=== PATIENT | male | born 1965 | race Caucasian/White ===

== ENCOUNTER 2024-05-09 17:46 | Observation (INO) | payer OTHER, SELFPAY ==
[2024-05-09] VITALS (14 sets, daily range): BP systolic 146–175; BP diastolic 59–89; BMI 33.7; BMI 32.5
[2024-05-09 08:37] LABS: Glucose - Point of Care 136 mg/dl (70-99)
[2024-05-09 09:36] LABS: % Eosinophils 1.7 % (0-6); % Immature Granulocytes 0.2 % (0-0.5); % Lymphocytes 22.6 % (20.5-51.1); % Monocytes 9.9 % (1.7-9.3); % Neutrophils 64.6 % (42.2-75.2); Absolute Eosinophils 0.1 10^3/uL (0-0.7); Absolute Lymphocytes 0.9 10^3/uL (1.2-3.4); Absolute Monocytes 0.4 10^3/uL (0.1-0.6); Absolute Neutrophils 2.6 10^3/uL (1.4-6.5); Hemoglobin 12.7 g/dL (13.0-18.0); Mean Corp Hgb Conc. 35.3 g/dL (33.0-37.0); Mean Corpuscular Hgb 32.7 pg (27.0-31.0); Mean Corpuscular Volume 92.8 fL (80.0-94.0); Mean Platelet Volume 9.6 fL (7.4-10.4); Nucleated Red Blood Cells % 0 % (-); Platelet Count 222 10^3/uL (130-400); Red Blood Cell Count 3.88 10^6/uL (4.70-6.10); Red Cell Dist. Width 11.9 % (11.5-14.5)
[2024-05-09 09:45] LABS: ALT (SGPT) 162 U/L (0-50); AST (SGOT) 131 U/L (17-59); Albumin 4.7 g/dl (3.5-5.0); Alkaline Phosphatase 53 U/L (38-126); Blood Urea Nitrogen 20 mg/dl (9-20); Calcium 9.7 mg/dl (8.4-10.2); Carbon Dioxide 26 mmol/L (22-30); Chloride 105 mmol/L (98-107); Estimated Creatinine Clearance > 125 ml/min; Glucose 134 mg/dl (70-99); Potassium 4.2 mmol/L (3.5-5.1); Sodium 139 mmol/L (135-145); Total Bilirubin 0.6 mg/dl (0.2-1.3); eGFR > 60.00
[2024-05-09] MEDS: ZOFRAN 4 MG IV (09:46)
--- NOTE | 2024-05-09 09:49 | ED.GENMED ---
History of Present Illness
<Vitaly Guerra Jr., PA-C - Last Filed: 05/09/24 16:51>
General
Chief Complaint: Change in Mental Status
Source: patient
Exam Limitations: none
Time Seen by Provider: 05/09/24 08:59
Nursing documentation reviewed up to this point in time: agreed with
History of Present Illness
History of Present Illness:
59-year-old male with past medical history of hypertension hyperlipidemia, diabetes presenting to the emergency department today with multiple concerns. He claims that he initially woke up with nausea and a few episodes of vomiting felt very shaky
diffusely also felt very lightheaded like he could pass out but no room spinning dizziness. Also felt somewhat confused and had some difficulty with articulation. He otherwise felt well last night denies any additional illnesses fevers chest pain
shortness of breath had a somewhat similar episode a few years ago when he was told that he may have had a TIA.
Past History
<Vitaly Guerra Jr., PA-C - Last Filed: 05/09/24 16:51>
Past History
ED Past Medical History: HTN
ED Past Surgical History: None
Social History
Tobacco: Non-smoker
Alcohol: None
Living: with family
Review of Systems
<Vitaly Guerra Jr., PA-C - Last Filed: 05/09/24 16:51>
Review of Systems
Allergies reviewed?: Yes
All Other Systems: ROS reviewed and negative except as documented in HPI and ROS
Phy Exam
<LAYO Donis Jr. Last Filed: 05/09/24 16:51>
Physical Exam
Physical Exam:
GENERAL: Alert , in no apparent distress
EYE: pupils equal and reactive
NECK: Supple, no significant adenopathy.
ENT: o/p clr, mmm.
CARDIAC: Regular rate and rhythm .
LUNGS: Clear breath sounds bilaterally, no acute respiratory distress, no wheezes/rales/rhonchi
ABDOMEN: Soft, without focal tenderness, no r/g, no cvat
NEUROLOGICAL: Alert and oriented, patient appears to have some difficulty finding words when speak no specific dysarthria normal HEENT exam. Patient had somewhat decreased coordination with finger-nose and qljl-[id number]. Otherwise does have 5 out
of 5 strength of the upper and lower extremities. Normal sensation when palpating.
SKIN: Warm and dry, skin intact.
MUSCULOSKELETAL: No edema, well perfused.
PSYCH: Normal and appropriate interaction.
Course
<Vitaly Guerra Jr., IVETTE-Annette - Last Filed: 05/09/24 16:51>
Orders/Labs/Results
Orders:
Orders
05/09/24 09:20
Troponin I Urgent
05/09/24 09:21
CMP [Comprehensive Metabolic Panel] Urgent
Complete Blood Count/With Diff Urgent
Magnesium Urgent
Comment: ADDON
TSH Reflex To Free T4 Urgent
Comment: ADDON
05/09/24 09:28
EKG [Electrocardiogram (*1)] Urgent
Reason for Study: TIA/Stroke
CT Head W/o Iv Contrast Urgent
Comment:
Reason For Exam: ams, coordination issue
05/09/24 09:29
Add On- LAB Urgent
Tests Added?: magnesium , TSH free t4
EKG- Treatment ONCE
05/09/24 09:44
Ondansetron Injectable [Zofran] 4 mg IV NOW STA
05/09/24 09:45
Ondansetron Injectable [Zofran] 4 mg .ROUTE .STK-MED ONE
05/09/24 11:21
Lorazepam [Ativan] 0.5 mg IV NOW STA
05/09/24 14:50
Lorazepam [Ativan] 0.5 mg IV NOW STA
05/09/24 15:00
0.9% Sodium Chloride 1000 ml [Nss] 1,000 ml IV 2,000 mls/hr
05/09/24 15:40
Thiamine HCl [Vitamin B1] 100 mg PO NOW STA
Abnormal Lab Results
05/09/24 05/09/24
08:35 09:21
WBC 4.0 L 10^3/uL
(4.8-10.8)
RBC 3.88 L 10^6/uL
(4.70-6.10)
Hgb 12.7 L g/dL
(13.0-18.0)
Hct 36.0 L %
(39.0-52.0)
MCH 32.7 H pg
(27.0-31.0)
Absolute Lymphs (auto) 0.9 L 10^3/uL
(1.2-3.4)
Monocytes % 9.9 H %
(1.7-9.3)
Glucose 134 H mg/dl
(70-99)
AST 131 H U/L
(17-59)
ALT 162 H U/L
(0-50)
POC Glucose 136 H mg/dl
(70-99)
05/09/24 09:21
05/09/24 09:21
Vital Signs
Initial and Last Documented VS:
Initial Vital Signs
Temp Pulse Resp BP Pulse Ox
97.9 F 68 20 169/77 98
05/09/24 08:32 05/09/24 08:32 05/09/24 08:32 05/09/24 08:32 05/09/24 08:32
Last Documented Vital Signs
Temp Pulse Resp BP Pulse Ox
97.9 F 62 14 156/69 96
05/09/24 08:32 05/09/24 16:30 05/09/24 16:30 05/09/24 16:00 05/09/24 16:30
<Bhupinder Pitts MD - Last Filed: 05/09/24 10:53>
Orders/Labs/Results
Orders:
Orders
05/09/24 09:20
Troponin I Urgent
05/09/24 09:21
CMP [Comprehensive Metabolic Panel] Urgent
Complete Blood Count/With Diff Urgent
Magnesium Urgent
Comment: ADDON
TSH Reflex To Free T4 Urgent
Comment: ADDON
05/09/24 09:28
EKG [Electrocardiogram (*1)] Urgent
Reason for Study: TIA/Stroke
CT Head W/o Iv Contrast Urgent
Comment:
Reason For Exam: ams, coordination issue
05/09/24 09:29
Add On- LAB Urgent
Tests Added?: magnesium , TSH free t4
EKG- Treatment ONCE
05/09/24 09:44
Ondansetron Injectable [Zofran] 4 mg IV NOW STA
05/09/24 09:45
Ondansetron Injectable [Zofran] 4 mg .ROUTE .STK-MED ONE
05/09/24 11:21
Lorazepam [Ativan] 0.5 mg IV NOW STA
05/09/24 14:50
Lorazepam [Ativan] 0.5 mg IV NOW STA
05/09/24 15:00
0.9% Sodium Chloride 1000 ml [Nss] 1,000 ml IV 2,000 mls/hr
05/09/24 15:40
Thiamine HCl [Vitamin B1] 100 mg PO NOW STA
Abnormal Lab Results
05/09/24 05/09/24
08:35 09:21
WBC 4.0 L 10^3/uL
(4.8-10.8)
RBC 3.88 L 10^6/uL
(4.70-6.10)
Hgb 12.7 L g/dL
(13.0-18.0)
Hct 36.0 L %
(39.0-52.0)
MCH 32.7 H pg
(27.0-31.0)
Absolute Lymphs (auto) 0.9 L 10^3/uL
(1.2-3.4)
Monocytes % 9.9 H %
(1.7-9.3)
Glucose 134 H mg/dl
(70-99)
AST 131 H U/L
(17-59)
ALT 162 H U/L
(0-50)
POC Glucose 136 H mg/dl
(70-99)
05/09/24 09:21
05/09/24 09:21
Vital Signs
Initial and Last Documented VS:
Initial Vital Signs
Temp Pulse Resp BP Pulse Ox
97.9 F 68 20 169/77 98
05/09/24 08:32 05/09/24 08:32 05/09/24 08:32 05/09/24 08:32 05/09/24 08:32
Last Documented Vital Signs
Temp Pulse Resp BP Pulse Ox
97.9 F 62 14 156/69 96
05/09/24 08:32 05/09/24 16:30 05/09/24 16:30 05/09/24 16:00 05/09/24 16:30
<Vitaly Guerra Jr., PA-C - Last Filed: 05/09/24 16:51>
MDM/Problems Addressed
MDM/Problems Addressed:
58-year-old male presenting to the emergency department today with concerns of lightheadedness nausea and vomiting shakiness and confusion starting this morning. Upon arrival blood pressure mildly elevated otherwise vital signs are normal. Patient
on neurologic examination had some difficulty with coordination of his upper and lower extremities but otherwise did have normal strength normal HEENT exam. No specific discomfort at this time. Did have some difficulties finding words here labs
unremarkable CT scan without emergent findings. Case discussed with neuro who saw him at bedside and does not feel this is representing an acute emergent neurologic event. Patient was given fluids and additional dose of Ativan seem to help with
symptoms but still having significant ataxic gait significant tremor concerning his significant ongoing symptoms plan to admit for observation overnight.
<Vitaly Guerra Jr., PA-C - Last Filed: 05/09/24 16:51>
*Critical Care Note
Total Time (30-74mins, 75-104mins- exclusive of procedures): Not Applicable
ED Attending Note
<Vitaly Guerra Jr., PA-C - Last Filed: 05/09/24 16:51>
-
Portions of this chart may have been created with voice recognition software.� Occasional wrong word or��sound alike� substitutions may have occurred due to the inherent limitations of voice recognition software.
<Bhupinder Pitts MD - Last Filed: 05/09/24 10:53>
ED Attending Note
Patient seen and examined by attending physician: Yes
ED Attending Note:
I have seen and evaluated the patient with a [id number] encounter. I have spoken to the advance practicer provider and involved in the medical history, the physical exam, medical decision making.
Evaluation and management service: agree unless noted differently below.
Results interpretation: agree unless noted differently below.
Focused HPI: 58-year-old male with past medical history as documented presents to the emergency department for evaluation of dizziness, tremulousness and speech issues. Patient reports onset of symptoms around 7:30 AM when he woke up. They have
been constant since that time although shakiness/tremulous seems to be waxing and waning. He reports difficulty with word finding; he says he has had a few episodes where he feels as if he might pass out. He says he has been nauseated and vomited
x 2. He has whole body tremulousness. Denies any headache, chest pain, abdominal pain. He denies any change in his vision. Although he has some difficulty with word finding he denies any slurring of his speech. He denies any focal weakness or
numbness in his extremities. He denies having had similar symptoms in the past.
Physical exam: Awake alert, nontoxic. Hypertensive but otherwise normal vitals. Head normocephalic atraumatic. Pupils are equal round reactive to light bilaterally, extraocular movements are intact. Cranial nerves intact 2 through 12. Speech is
fluid with no dysarthria, occasionally has some hesitancy with word finding but no marked aphasia. He has tremulousness with intention but no resting tremor; he has no limb ataxia. Motor and sensory function is intact and symmetric upper and lower
extremities both proximally and distally. He has no cardiac rubs gallops or murmurs on a regular rhythm on auscultation.
Medical Decision Makin-year-old male presents with multiple complaints as above primarily complaining of tremulousness and speech issues also having some lightheadedness and nausea. Vitals and exam as above. Check labs including a CBC and a
CMP. Will check EKG. Check troponin. Check CT head. Discussed with neurology For assessment. Reassess after the above.
Discharge Plan
Departure
Patient Disposition: Admit
Date of Disposition: 05/09/24
Time of Disposition: 16:51
Admit to: Telemetry
Admit to doctor: Jennyfer
Presentation/result/management discussed w/ accepting MD/DO: Hospitalist
Patient with high blood pressure during this ER visit?: No
Condition: Good
Covid-19: Not Applicable
Discharge Problem:
Ataxia, Tremor
Prescriptions:
No Action
lansoprazole [Prevacid] 30 MG capsule,delayed release(DR/EC)
30 mg PO DAILY
sertraline [Zoloft] 100 MG tablet
100 mg PO DAILY
amlodipine 5 MG tablet
5 mg PO DAILY
rosuvastatin 20 MG tablet
20 mg PO DAILY
losartan-hydrochlorothiazide 100-25 mg Tablet
1 tab PO DAILY
doxazosin 1 mg Tablet
1 mg PO DAILY
Medical Marijuana
1 puff inhalation HS
Emgality Pen 120 mg/mL Pen Injector
120 mg SC QMONTH
Fish Oil Capsule
3,000 mg PO DAILY
cholestyramine (with sugar) 4 gram powder in packet
1 ea PO DAILY
Rezdiffra 100 mg Tablet
100 mg PO DAILY
Referrals:
Kaz Ochoa Jr., DO [Family Provider] -
Interventions
Interventions:
*Risk Screen - Suicide Last Done: 05/09/24 08:32
*General Assessment Last Done: 05/09/24 08:32
*Neglect/Abuse Screening Last Done: 05/09/24 08:32
ED- Fall Risk Assessment Last Done: 05/09/24 09:14
KK-Nqkrpa-Inqlvddlfs Assessment Last Done: 05/09/24 09:14
ED- Cardiac Assessment Last Done: 05/09/24 09:14
ED- Neurological Assessment Last Done: 05/09/24 09:23
ED Swallowing Screen Last Done: 05/09/24 14:58
Discharge Date and Time
Print Language: GREEK
[2024-05-09 10:59] LABS: Magnesium 1.7 mg/dl (1.6-2.3)
[2024-05-09] MEDS: ATIVAN 0.5 MG IV ×2 (11:28→15:11)
[2024-05-09 11:31] LABS: TSH Reflex To Free T4 2.47 uIU/ml (0.47-4.68)
--- NOTE | 2024-05-09 12:13 | CON.NEURO4 ---
Addendum entered and electronically signed by Azar Rivera MD 05/09/24 15:02:
I saw and evaluate the patient I reviewed the note by Rizwana Snow agree with the findings the following comments:
58-year-old man with past medical history of migraines, transient global amnesia, ADHD and hypertension presenting the hospital after he had woken up this morning with a 'feeling of doom' and then feeling of nausea and then vomiting. He is also had
some word finding difficulties along with tremulousness when he walks.
Patient denies any headache or photophobia no sick contacts or recent changes in medications. He had Bengali food last night does not note any really big change in bowel movements recently denies any abdominal pain he does feel a bit like he still
has some nausea and feeling of chills at this time.
No unilateral paresthesia of the face or limbs no unilateral weakness no dysphagia or double vision or vision changes.
Neurologic examination shows good fluent speech able to repeat complex phrases and his spontaneous speech has occasionally some pauses, obeys complex commands and can set up logical lesions very fluently.
Cranial nerves II through XII normal
Motor examination normal while resting in bed he does develop some generalized tremulousness when walking, power 5/5 normal bulk and tone
Reflexes diminished and symmetric throughout
Gait examination shows independent ability to walk with some tremulousness while walking but no ataxia or wide-based
Normal [id number] testing bilateral
CT head noncontrast unremarkable
Assessment: Most likely having some dizziness, tremulousness and word finding difficulty secondary to dehydration, electrolyte disturbance, from nausea and vomiting ultimately. Not characteristic of migraine. Does not seem to be convincing for a
cyclic vomiting syndrome he does use marijuana most nights of the week for restless leg syndrome.
Recommendations
-Mostly reassurance
-Treat symptomatically for GI symptoms
-Monitor for migraine headache
-Not feeling he needs further neurologic imaging
Original Note:
Consultation - Neurology 4
-
CONSULTING PHYSICIAN: Hailey Rivera MD
REFERRING PHYSICIAN: ER/Ed LAYO Guerra
DICTATED BY: GABRIEL Mayorga
DATE/TIME OF REQUEST: 05/09/24
DATE/TIME OF CONSULTATION: 05/09/24
Reason for Consultation: Word finding difficulty
History of Present Illness:
This is a 58-year-old right-handed male who has presented to the hospital with report of nausea, vomiting, dizziness, and word finding difficulty. Patient is followed by our Neurology service as an outpatient for an episode of TGA in 2019,
migraines, and restless legs syndrome.
From previous outpatient evaluation by Neurology GABRIEL Boswell on 11/23/23:
'56-year-old male presents for evaluation for an episode of possible transient global amnesia. Of note he has a history of migraine headaches for which she previously followed with [place] [facility]. He was admitted at [facility] in
July 2020 after developing an episode of confusion. He was 'sitting at the dinner table, then had a blank look on his face, his right eye drooped per his , told his that he did not feel well and was slow to answer questions.' She told
him that he needed to go to the hospital and he argued with her that he did not want to. He maintained consciousness throughout the event but does not remember the details of it. He was not lethargic during the event. He had no clear convulsive
seizure activity associated with it. 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 He had been taking Horizant prescribed by [place] [facility] but had been on this for some time
prior to this event. He denied any physical exertion prior to this event or any medical procedures. His BP in the ED was 146/80. He felt back to normal by the next day. He had no clear focal neurological deficits associated with this event. He had
mild head pressure. He was not aphasic. He did not have dysarthria. Regarding seizure risk factors, he has no personal history of seizure. He has no history of head trauma. No family history of seizure. No history of [employer] infection, febrile seizure
or developmental delay. He was born full-term without any complications.
�������He had an MRI brain done without contrast, and MRA of the neck w/without contrast and MRA [place] of [place] without contrast done at [facility] while he was hospitalized on July 29, 2020. These studies were unremarkable. No focal
stenosis, aneurysm or occlusion was noted. He was discharged with a diagnosis of TGA. He has had no further similar episdoes.
�������The patient also states that he has noticed short-term memory loss. He states that he 'cannot remember something when he needs to but then it comes back to him.' He is also developed tremors at night in his BUE but no associated loss of
consciousness.
�������He has a history of headaches that he has had for the past year and a half. There are right temporal in location, constant, achy and can last all day. There also at times centered around his right eye. No associated conjunctival injection or
tearing. He has no associated aura. No photophobia, phonophobia, nausea or vomiting. They can be severe and interfere with his life. He takes ibuprofen for abortive therapy. He was put on Emgality by his previous neurologist and took this for 6
months. This worked very well and he was headache free on this medication but he had to stop taking it as it was not covered by his insurance.'
Patient reports feeling at his baseline last night when he went to bed. At 0615 he woke up and reports having an 'impending doom' sensation. He immediately felt nausea and vomited after drinking some water. He walked to the bathroom and reports
getting dizzy which he describes as off-balance/lightheaded. He felt shaky and thought he might pass out. He also notes his gait feels unsteady and he is having some word finding difficulty which has persisted. He denies any headache, vision
changes, swallowing difficulty, hearing changes, ear fullness, numbness, weakness, chest pain, palpitations, and shortness of breath. CT head was obtained on arrival and is negative for any acute abnormalities.
He denies any recent sick exposure or fevers. His migraines have been well controlled on Emgality, he has less than 5 headache days a month not associated with photo/phonophobia, nausea/vomiting, or vision changes. He started taking Rezdiffra for
liver fibrosis two months ago and has been tolerating this. He takes medical marijuana for RLS most nights of the week, he did not use any last night. His RLE is most prominent in his RLE but his notes he has entire body tremors in his sleep.
He never has tongue biting or incontinence with his tremors. He has had chronic diarrhea since cholecystectomy about one year ago, improved with cholestryamine. He does not feeling more fatigued for the past 2 weeks.
Past Medical History: Migraines, ADHD, TMJ, TGA, HTN
Surgical History: Cholecystectomy, right knee meniscus repair, triple hernia repair, kidney stone removal.
Family History: Reviewed and noncontributory.
Social History: Occasional alcohol. Denies tobacco. Medical marijuana at HS most days of the week for restless legs. Lives with his spouse, mother in law, and cat Sincere.
Allergies: Annatto, cilantro.
Home Medications: See below.
Review of Symptoms:
Patient denies any fever, headache, chest pain, shortness of breath, or symptoms.
�Per the HPI.�All systems are reviewed negative except above.
Physical Exam:
The patient is afebrile, abdomen is nondistended, breathing is unlabored, skin is cool and dry, no edema.
Neurologic Examination:
The patient is awake, alert and oriented x 3. He is able to follow commands and answer questions appropriately. There is no aphasia or dysarthria. On cranial nerve assessment, pupils are 3 mm bilateral, round and reactive to light and
accommodation. Visual hernandes are full. Extraocular movements are intact. Facial sensations are intact and bilaterally symmetrical, there is no facial asymmetry. Hearing is intact bilaterally to normal conversation volume. Tongue palate and uvula are
midline. Sternocleidomastoid strengths are full bilaterally. Motor strengths are 5/5 bilateral upper and lower extremities on medical research [place] scale. There is no drift. There is a low amplitude distal upper and lower extremity tremor with
exertion. Deep tendon reflexes are 1+ bilateral upper and lower extremities and Babinski is absent bilaterally. Sensation of temperature is mildly reduced in distal bilateral lower extremities. There was no extinction noted on double simultaneous
stimulation. Coordination is intact by finger to nose bilaterally. Gait is staggered, low amplitude body shaking.
Lab Results: See below.
Neuro Imaging:
1. CT Head 05/09/24: No acute intracranial abnormality.
Differentials for the patient's presentation include:
1. Metabolic disturbance likely producing patient's symptoms.
2. Low concern for [employer] issue, marijuana reaction, or migraine to be producing patient's symptoms.
Patient has the following risk factors for their symptoms: vomiting, chills
Recommendations:
-Metabolic workup per primary team. Consider IVF/vitamin replacement.
-Do not see a role for further neurological imaging at this point.
Discussed patient care with: Dr. Rivera, the patient
Vital Signs and Labs
-
Vital Signs and Labs:
Vital Signs
Temp Pulse Resp BP Pulse Ox
97.9 F 81 15 156/61 97
05/09/24 08:32 05/09/24 12:45 05/09/24 12:45 05/09/24 12:00 05/09/24 12:45
Lab Results
05/09/24 09:21
05/09/24 09:21
Sodium 139 mmol/L (135-145) 05/09/24 09:21
Potassium 4.2 mmol/L (3.5-5.1) 05/09/24 09:21
BUN 20 mg/dl (9-20) 05/09/24 09:21
Glucose 134 mg/dl (70-99) H 05/09/24 09:21
Calcium 9.7 mg/dl (8.4-10.2) 05/09/24 09:21
Medications
-
Home Medications
�Medication �Instructions �Recorded
lansoprazole 30 mg capsule,delayed 30 mg PO DAILY Gastrointestinal 10/27/16
release (Prevacid) issue
amlodipine 5 mg tablet 5 mg PO DAILY Heart 07/28/20
disease/condition
rosuvastatin 20 mg tablet 20 mg PO DAILY High cholesterol 07/28/20
sertraline 100 mg tablet (Zoloft) 100 mg PO DAILY Depression 07/28/20
Medical Marijuana 1 puff inhalation HS RESTLESS LEGS 02/18/23
doxazosin 1 mg tablet 1 mg PO DAILY 02/18/23
galcanezumab-gnlm 120 mg/mL 120 mg SC QMONTH MIGRAINES 02/18/23
subcutaneous pen injector
(Emgality Pen)
losartan 100 1 tab PO DAILY 02/18/23
mg-hydrochlorothiazide 25 mg tablet
cholestyramine (with sugar) 4 gram 1 ea PO DAILY 05/09/24
powder for susp in a packet
omega-3 fatty acids 3,000 mg PO DAILY 05/09/24
resmetirom 100 mg tablet 100 mg PO DAILY 05/09/24
(Alvaro)
[2024-05-09 12:50] LABS: Troponin I < 0.012 ng/ml
[2024-05-09] MEDS: NSS 1000 IV ×2 (15:10→16:49)
[2024-05-09] MEDS: VITAMIN B1 100 MG PO (16:48)
--- NOTE | 2024-05-09 17:12 | HPS.HSE ---
Family Physician
-
Family Physician: Kaz Ochoa Jr.
Chief Complaint
-
vomiting
History of Present Illness
58-year-old male past medical history of migraines, CAMARGO, hypertension, hyperlipidemia, prediabetes, depression, GERD, DVT, kidney stones, presenting to the emergency room for multiple symptoms. He states that he initially woke up with nausea and
4 episodes of vomiting and he felt very shaky and lightheaded when he was walking like he was going to pass out denies any vertigo or spinning. He also felt confused at some difficulty with articulation. He denies any diarrhea. He denies
abdominal pain. He denies any recent travel, eating any restaurant food, green party food or any sick contacts.
He denies any headache, blurry vision, focal weakness, numbness or tingling. He denies urinary symptoms, chest pain or shortness of breath or cough.
He was recently started on Rezdiffa 2 months ago and started cholestyramine 3 days ago for chronic postcholecystectomy diarrhea.
Uses medical marijuana. He does not smoke or drink alcohol or use any other drugs.
Medical History
Past Medical History
Past Medical History: Reports Other (migraines, CAMARGO, hypertension, hyperlipidemia, prediabetes, depression, GERD, DVT, kidney stones)
Past Surgical History: Reports Other (Triple hernia repair, diastases recti surgery, cholecystectomy, meniscus surgery,)
Social History
Tobacco: Non-smoker
Alcohol: None
Drug: Marijuana
Family History
Family History: Not pertinent
Allergies / Home Medications
Allergies reflects when Allergies were last updated in [facility].
Home Medications with original date entered in [facility]
Allergy/Medication List:
Allergies
Allergy/AdvReac Type Severity Reaction Status Date / Time
annatto Allergy Unknown Verified 05/09/24 08:37
Toro food Allergy Anaphylaxis Uncoded 05/09/24 08:37
Home Medications
lansoprazole 30 mg capsule,delayed release (Prevacid) 30 mg PO DAILY Gastrointestinal issue 10/27/16
amlodipine 5 mg tablet 5 mg PO DAILY Heart disease/condition 07/28/20
rosuvastatin 20 mg tablet 20 mg PO DAILY High cholesterol 07/28/20
sertraline 100 mg tablet (Zoloft) 100 mg PO DAILY Depression 07/28/20
Medical Marijuana 1 puff inhalation HS RESTLESS LEGS 02/18/23
doxazosin 1 mg tablet 1 mg PO DAILY 02/18/23
galcanezumab-gnlm 120 mg/mL subcutaneous pen injector (Emgality Pen) 120 mg SC QMONTH MIGRAINES 02/18/23
losartan 100 mg-hydrochlorothiazide 25 mg tablet 1 tab PO DAILY 02/18/23
cholestyramine (with sugar) 4 gram powder for susp in a packet 1 ea PO DAILY 05/09/24
omega-3 fatty acids 3,000 mg PO DAILY 05/09/24
resmetirom 100 mg tablet (Rezdiffra) 100 mg PO DAILY 05/09/24
Review of Systems
-
History Source: Patient
A 12 point ROS was completed and negative except as noted: Yes
Constitutional: Reports No Symptoms
EENT: Reports No Symptoms
Respiratory: Reports No Symptoms
Cardiac: Reports No Symptoms
Abdomen/GI: Reports See HPI
: Reports No Symptoms
Musculoskeletal: Reports No Symptoms
Skin: Reports No Symptoms
Neurological: Reports No Symptoms
Endocrine: Reports No Symptoms
Hematologic/Lymphatic: Reports No Symptoms
Psych: Reports No Symptoms
Physical Exam
Vital Signs
Vital Signs
Temp Pulse Resp BP Pulse Ox
97.9 F 62 14 156/69 96
05/09/24 08:32 05/09/24 16:30 05/09/24 16:30 05/09/24 16:00 05/09/24 16:30
Physical Exam
General: Well Developed, Well Nourished and No Apparent Distress
HEENT: NormoCephalic, Moist mucous membranes and Atraumatic
Respiratory: Clear
Cardiac: S1/S2 and Regular Rhythm; No Murmur or Rub
GI: Soft, Non Tender, Non Distended and Normal Bowel Sounds; No Organomegaly
Rectal: Deferred by Provider
Musculoskeletal: No Clubbing, No Cyanosis and No Edema
Skin: No Rash
Neuro: Nonfocal/grossly intact
Laboratory Results
-
05/09/24 09:21
05/09/24 09:21
Laboratory Results
Total Bilirubin 0.6 mg/dl (0.2-1.3) 05/09/24 09:21
AST 131 U/L (17-59) H 05/09/24 09:21
ALT 162 U/L (0-50) H 05/09/24 09:21
Alkaline Phosphatase 53 U/L (38-126) 05/09/24 09:21
Troponin I < 0.012 ng/ml 05/09/24 09:20
Data Reviewed
-
Lab Data: Labs Reviewed by me
Old Records: Reviewed
Impression/Plan
-
IMPRESSION:
PLAN:
# Vomiting, chills, generalized weakness, dizziness, disequilibrium likely secondary to recent addition of cholestyramine
-Hold cholestyramine until resolution of symptoms
-IV fluids given
-Zofran
-Symptoms improving
-Observation overnight
-Regular diet as tolerated
-Seen by neurology without concern for underlying neurological issue
Chronic transaminitis secondary to CAMARGO
-continue rezzdiffra
Postcholecystectomy diarrhea
-Started cholestyramine 3 days ago without diarrhea at this time, hold for now
Essential hypertension
-Continue amlodipine, losartan/hydrochlorothiazide, doxazosin
History of migraines
-On Emgality
Hyperlipidemia
-Continue statin
Prediabetes
History of DVT
Depression
-Continue sertraline
GERD
-Continue lansoprazole
History of kidney stones
Medical marijuana use
Full code
DVT prophylaxis�heparin
Regular diet
--- NOTE | 2024-05-09 19:21 | PTCARENOTE ---
Received this pt from the ED, pt ambulated to the bed with standby assistance and no assistive devices, VSS, resting comfortably in bed with significant other at bedside.
[2024-05-09] MEDS: HEPARIN 5000 UNITS SC (21:01)
[2024-05-10 03:37] VITALS: BP 148/74
[2024-05-10 06:54] LABS: ALT (SGPT) 145 U/L (0-50); AST (SGOT) 120 U/L (17-59); Albumin 4.6 g/dl (3.5-5.0); Alkaline Phosphatase 54 U/L (38-126); Blood Urea Nitrogen 14 mg/dl (9-20); Calcium 9.6 mg/dl (8.4-10.2); Carbon Dioxide 26 mmol/L (22-30); Chloride 101 mmol/L (98-107); Estimated Creatinine Clearance > 125 ml/min; Glucose 110 mg/dl (70-99); Potassium 3.9 mmol/L (3.5-5.1); Sodium 136 mmol/L (135-145); Total Bilirubin 1.6 mg/dl (0.2-1.3); Total Protein 6.9 g/dl (6.3-8.2); eGFR > 60.00
[2024-05-10 06:55] LABS: % Basophils 0.8 % (0-2); % Eosinophils 2.6 % (0-6); % Immature Granulocytes 0.3 % (0-0.5); % Lymphocytes 23.1 % (20.5-51.1); % Monocytes 10.4 % (1.7-9.3); % Neutrophils 62.8 % (42.2-75.2); Absolute Basophils 0.1 10^3/uL (0-0.2); Absolute Eosinophils 0.2 10^3/uL (0-0.7); Absolute Lymphocytes 1.4 10^3/uL (1.2-3.4); Absolute Monocytes 0.6 10^3/uL (0.1-0.6); Absolute Neutrophils 3.9 10^3/uL (1.4-6.5); Hemoglobin 12.7 g/dL (13.0-18.0); Mean Corp Hgb Conc. 34.3 g/dL (33.0-37.0); Mean Corpuscular Hgb 32.4 pg (27.0-31.0); Mean Corpuscular Volume 94.4 fL (80.0-94.0); Mean Platelet Volume 10.3 fL (7.4-10.4); Nucleated Red Blood Cells % 0 % (-); Platelet Count 240 10^3/uL (130-400); Red Blood Cell Count 3.92 10^6/uL (4.70-6.10); Red Cell Dist. Width 11.8 % (11.5-14.5); White Blood Cell Count 6.1 10^3/uL (4.8-10.8)
[2024-05-10 07:40] VITALS: BP 139/72
[2024-05-10] MEDS: NORVASC 5 MG PO (08:59)
[2024-05-10] MEDS: CRESTOR 20 MG PO (08:59)
[2024-05-10] MEDS: HYZAAR 100-25 TABLET 1 TAB PO (08:59)
[2024-05-10] MEDS: PROTONIX 40 MG PO (08:59)
[2024-05-10] MEDS: ZOLOFT 100 MG PO (08:59)
[2024-05-10] MEDS: HEPARIN 5000 UNITS SC (09:00)
[2024-05-10] MEDS: CARDURA 1 MG PO (09:00)
[2024-05-10 11:20] VITALS: BP 151/78
--- NOTE | 2024-05-10 12:15 | CM ---
Reviewed the chart notes and spoke with the patient at the bedside. The patient is admitted under observational status. The observation letter was provided and explained. The patient had no questions with regards to the letter.
The patient resides with his spouse and [id number] in a multi-level home, there are 10 steps to enter. The patient reports no DME/VN/SNF in the past. The patient confirmed his pharmacy of choice is [facility]. The patient will be discharged today
to home with no needs. His spouse will provide transportation. CM continues to be available to patient/family and is monitoring medical plan for needs at discharge.
Plan: Discharge to home no needs identified.
--- NOTE | 2024-05-10 13:09 | W.PN.HOSP.TC ---
Today's Communication/Plan
-
dc to home
Assessment / Plan
Assessment / Plan
Assessment:
Vomiting, chills, generalized weakness, dizziness, disequilibrium likely secondary to recent addition of cholestyramine and ongoing use of Rezdiffra
- extensive discussion with patient, will ask to stop Rezdiffra and for now keep cholestyramine with caveat that if his symptoms occur again to dc cholestyramine as well
- regular diet
- OP f/u with GI and hepatology
- appreciate Neuro eval, no concern for neurological etiology
Chronic transaminitis secondary to CAMARGO
- as above, stop Rezdiffra and Hepatology f/u
Postcholecystectomy diarrhea
-Started cholestyramine 3 days ago without diarrhea at this time, hold for now
Essential hypertension
- Continue amlodipine, losartan/hydrochlorothiazide, doxazosin
History of migraines
- On Emgality
Hyperlipidemia
- Continue statin
Prediabetes
History of DVT
Depression
- Continue sertraline
GERD
- continue lansoprazole
History of kidney stones
Medical marijuana use
DVT ppx: SC heparin
Code: Full
More than 30 minutes spent in discharge including
Final examination of the patient
Summarizing hospital stay
Instructions for continuing care to all relevant caregivers
Preparation of discharge records, prescriptions, and referral forms
Total time spent (in minutes): 41
Anticipated Discharge: Within 24 hours
Subjective/Interval History
-
Date of Service: May 10, 2024
symptomatically improving, able to tolerated diet now
Objective Data
-
Labs:
Laboratory Results
05/10/24
04:50
WBC 6.1
Hgb 12.7 L
Hct 37.0 L
Plt Count 240
Sodium 136
Potassium 3.9
Chloride 101
Carbon Dioxide 26
BUN 14
Creatinine 0.8
Glucose 110 H
Calcium 9.6
Total Bilirubin 1.6 H D
AST 120 H
ALT 145 H
Alkaline Phosphatase 54
Vital Signs:
Vital Signs
Temp Pulse Resp BP Pulse Ox
98.4 F 66 16 151/78 97
05/10/24 11:20 05/10/24 11:20 05/10/24 11:20 05/10/24 11:20 05/10/24 12:06
I&O
05/09/24 05/10/24 05/11/24
06:59 06:59 06:59
Intake Total 1000 / 1000
Balance 1000 / 1000
Physical Exam
-
General: No Apparent Distress
HEENT: Normocephalic and Atraumatic
Respiratory: Negative Wheezes
Cardiac: Regular Rhythm and S1/S2
GI: Soft and Nontender
Neuro: AO x 3
Psych: Calm
Data Reviewed
-
Total Time Spent with Patient (in minutes): 42
Labs: Labs Reviewed by me
--- NOTE | 2024-05-10 13:20 | W.DS.TRANS ---
DC Summary - Product Advisor
-
Discharge Instructions:
Discharge Diagnosis/Procedures tremor, disequilibrium from Rezdiffra +/-
Cholestyramine
Diet Regular
Activity As tolerated
Bathing Restrictions None
Instructions:
Stand-Alone Forms:
Changes to Home Medications: Yes
Discharge Medications:
DC Medications w/original date entered in [facility]
lansoprazole 30 mg capsule,delayed release (Prevacid) 30 mg PO DAILY Gastrointestinal issue 10/27/16
amlodipine 5 mg tablet 5 mg PO DAILY Heart disease/condition 07/28/20
rosuvastatin 20 mg tablet 20 mg PO DAILY High cholesterol 07/28/20
sertraline 100 mg tablet (Zoloft) 100 mg PO DAILY Depression 07/28/20
Medical Marijuana 1 puff inhalation HS RESTLESS LEGS 02/18/23
doxazosin 1 mg tablet 1 mg PO DAILY 02/18/23
galcanezumab-gnlm 120 mg/mL subcutaneous pen injector (Emgality Pen) 120 mg SC QMONTH MIGRAINES 02/18/23
losartan 100 mg-hydrochlorothiazide 25 mg tablet 1 tab PO DAILY Blood Pressure 02/18/23
cholestyramine (with sugar) 4 gram powder for susp in a packet 1 ea PO DAILY 05/09/24
omega-3 fatty acids 3,000 mg PO DAILY 05/09/24
Home Medication Changes
Rezdiffra stopped
Pending Results: No
Total time spent discharging patient (in min): 42
--- NOTE | 2024-05-10 14:13 | PTCARENOTE ---
Patient discharged home with no needs. This RN removed patient's IV and telemetry pack and reviewed discharge instructions and medications with patient; patient verbalized understanding. Patient dressed and gathered belongings in room independently,
taken down to family member's car at main lobby via staff escort and wheelchair.
== END 2024-05-10 14:25 | disposition home or self-care (01) ==
LOC: 2 NORTH 17:46
PROVIDERS: Physician Assistant; ADMITTING PHYSICIAN Hospitalist; ATTENDING PHYSICIAN Internal Medicine; EMERGENCY PHYSICIAN Emergency Medicine; FAMILY PHYSICIAN Family Medicine; OTHER PHYSICIAN Student in an Organized Health Care Education/Training Program
DX: R42 Dizziness and giddiness (principal); R41.82 Altered mental status, unspecified; R26.0 Ataxic gait; R25.1 Tremor, unspecified; T46.6X5A Adverse effect of antihyperlipidemic and antiarteriosclerotic drugs, initial encounter; Y92.9 Unspecified place or not applicable; I10 Essential (primary) hypertension; E11.9 Type 2 diabetes mellitus without complications; E78.5 Hyperlipidemia, unspecified; R11.2 Nausea with vomiting, unspecified; R47.9 Unspecified speech disturbances; G25.81 Restless legs syndrome; F12.90 Cannabis use, unspecified, uncomplicated; R41.3 Other amnesia; G43.909 Migraine, unspecified, not intractable, without status migrainosus; F90.9 Attention-deficit hyperactivity disorder, unspecified type; K75.81 Nonalcoholic steatohepatitis (NASH); R19.7 Diarrhea, unspecified; K21.9 Gastro-esophageal reflux disease without esophagitis; F32.A Depression, unspecified; Z86.718 Personal history of other venous thrombosis and embolism; Z87.442 Personal history of urinary calculi; Z90.49 Acquired absence of other specified parts of digestive tract
CPT/HCPCS: 70450; 80053; 82962; 83735; 84443; 84484; 85025; 93005; 96374; 96375; 96376; 99285; G0378

== ENCOUNTER → 2024-07-29 10:04 | Outpatient (REF) | payer OTHER, SELFPAY | LOC: RCS 10:04 | PROVIDERS: ATTENDING PHYSICIAN Family Medicine | DX: R05.3 Chronic cough (principal) | CPT/HCPCS: 71046 ==

== ENCOUNTER → 2024-08-31 06:59 | Outpatient (REF) | payer OTHER, SELFPAY | LOC: MRI 06:59 | PROVIDERS: ATTENDING PHYSICIAN Specialist; FAMILY PHYSICIAN Family Medicine | DX: M25.561 Pain in right knee (principal) | CPT/HCPCS: 73721 ==

== ENCOUNTER → 2024-10-10 14:00 | Outpatient (REF) | payer OTHER, SELFPAY | LOC: UCDH 14:00 | PROVIDERS: ATTENDING PHYSICIAN Emergency Medicine; FAMILY PHYSICIAN Family Medicine | DX: S99.921A Unspecified injury of right foot, initial encounter (principal); S99.922A Unspecified injury of left foot, initial encounter | CPT/HCPCS: 73630 ==